=== PATIENT | male | born 1950 | race Caucasian/White ===

== ENCOUNTER 2016-10-28 09:07 | Outpatient (CLI) | payer MEDICARE ==
[~2016-10-28] VITALS: Ht 182.9 cm; Wt 108.6 kg
--- NOTE | ~2016-10-28 | HEMODYNAMI ---
PATIENT:SARAVANAN SAM MEDICAL RECORD: [id number] : 50 LOCATION:[facility] ADMISSION DATE: 10/28/16 Generatedon:10/28/201612:15 Patient name: SARAVANAN SAM Patient #: [id number] : 1950 Date of study: 10/28/2016 Page: Of Hemodynamic Procedure Report Patient Data Patient Demographics Procedure consent was obtained First Name: SARAVANAN Gender: Male Last Name: FLACO : 1950 [facility] Initial: NIA Age: 66 year(s) Patient #: [id number] Race: SSN: [id number] Additional ID: [id number] Contact details [address]: [address] [place] [address] State: [place] City: [place] Zip code: [address] Past Medical History History of disease Date Diagnosis Comments Valvular heart disease Renal failure->Dialysis Allergies: No known allergies Admission Admission Data Admission Date: 10/28/2016 Admission Time: 9:07 Arrival Date: 10/28/2016 Arrival Time: 0:00 Admit Source: Other Insurance Payor: Medicare Height (in.): 72 BSA: 2.3 (m2) Height (cm.): 182.88 BMI: 32.41 (kg/m2) Weight (lbs.): 239 Weight (kg.): 108.41 Lab Results Lab Result Date: 10/28/2016 Lab Result Time: 0:00 Biochemistry Name Units Result Min Max BUN mg/dl 34 --(----)-* 7 18 Creatinine mg/dl 6.7 --(----)-* 0.6 1.3 CBC Name Units Result Min Max Hemoglobin g/dl 14.1 --(*---)-- 13.5 17.5 Procedure Procedure Types Cath Procedure Diagnostic Procedure LHC LHC w/Coronaries w/Grafts PCI Procedure Coronary Stent Initial Miscellaneous Procedures Moderate Sedation up to 45 minutes Procedure Description Procedure Date Procedure Date: 10/28/2016 Procedure Start Time: 11:50 Procedure End Time: 12:11 Procedure Staff Name Function Alpesh Swan MD Performing Physician Sabine Sanches RT Scrub Annita Bates RN Nurse Jesus Perez RT Monitor Procedure Data Cath Procedure Fluoroscopy Diagnostic fluoroscopy Total fluoroscopy Time: 8.5 time: 8.5 min min Diagnostic fluoroscopy Total fluoroscopy dose: 695 dose: 695 mGy mGy Contrast Material Contrast Material Type Amount (ml) Isovue 300 112 Entry Location Entry Primary Successful Side Size Upsize Upsize Entry Closure Succes sful Closure Location (Fr) 1 (Fr) 2 (Fr) Remarks Device Remarks Femoral Right 5 Fr 6 Fr Exoseal artery Short Diagnostic catheters Device Type Used For End Catheter Placement Cordis 5Fr Pigtail LV Angiography Catheter (MP) Cordis 5Fr JL 4.0 Left Coronary Catheter (MP) Angiography Cordis 5Fr 3DRC Catheter SVG Angiography (MP) Diagnostic Infinity 5Fr SVG Angiography AR 2 MOD catheter Procedure Complications No complications Procedure Medications Medication Administration Route Dosage Oxygen NC 2 l/min Lidocaine 2% added to field 20 Heparin Flush Bag added to field 2 bags (1000units/500ml NS) 0.9% NaCl I.V. 100 ml/hr Versed I.V. 1 mg Fentanyl I.V. 50 mcg Versed I.V. 1 mg Fentanyl I.V. 50 mcg Versed I.V. 1 mg Fentanyl I.V. 50 mcg Heparin Bolus I.V. 4000 units Integrilin (Bolus I.V. 9.5 ml 2mg/ml) Versed I.V. 1 mg Fentanyl I.V. 50 mcg Plavix P.O. 600 mg Hemodynamics Rest BSA: 2.3 (m2) HGB: 14.1 (g/dl) O2 Consumption: Estimated: 304.07 (ml/min) O2 Con sumption indexed: Estimated:132.2 (ml/min/m) Heart Rate: 112 (bpm) Snapshots Pre Cath Intra NCS Post Cath Vital Signs Time Heart Resp SPO2 NIBP Rhythm Pain Sedation Rate (ipm) (%) (mmHg) Status Level (bpm) 11:00:05 111 23 100 96/70(80) NSR 0 (11) 10(A) , No pain 11:04:16 111 19 99 88/66(80) NSR 0 (11) 10(A) , No pain 11:08:22 111 20 100 95/68(76) NSR 0 (11) 10(A) , No pain 11:12:32 110 24 100 91/65(77) NSR 0 (11) 10(A) , No pain 11:16:38 110 16 96 92/69(82) NSR 0 (11) 10(A) , No pain 11:20:46 111 18 99 96/68(83) NSR 0 (11) 10(A) , No pain 11:24:56 111 16 95 93/66(83) NSR 0 (11) 10(A) , No pain 11:29:01 111 14 95 93/71(80) NSR 0 (11) 10(A) , No pain 11:33:19 108 15 96 93/50(84) NSR 0 (11) 10(A) , No pain 11:37:32 109 17 97 95/59(62) NSR 0 (11) 10(A) , No pain 11:41:42 108 17 95 89/67(77) NSR 0 (11) 10(A) , No pain 11:45:53 108 16 95 87/56(72) NSR 0 (11) 10(A) , No pain 11:50:01 108 16 94 85/59(80) NSR 0 (11) 9(A) , No pain 11:54:09 108 16 95 90/59(72) NSR 0 (11) 9(A) , No pain 11:58:23 107 15 94 82/53(76) NSR 0 (11) 9(A) , No pain 12:02:29 106 17 95 81/58(71) NSR 0 (11) 9(A) , No pain 12:06:33 71 14 95 75/61(69) NSR 0 (11) 9(A) , No pain 12:10:32 111 16 96 93/71(87) NSR 0 (11) 10(A) , No pain Medications Time Medication Route Dose Verified Delivered Reason Notes Effectiveness by by 10:59:19 Oxygen NC 2 Alpesh Ariza used for l/min Beny Bates sanitation truck driver 10:59:25 Lidocaine 2% added 20ml Alpesh Betts for local to vial Beny Swan MD anesthetic field 10:59:30 Heparin Flush added 2 Alpesh Betts used for Bag to bags Beny Swan MD procedure (1000units/500ml field NS) 10:59:40 0.9% NaCl I.V. 100 Alpesh Buffie Per physician ml/hr Beny Bates RN 11:42:00 Versed I.V. 1 mg Alpesh Wongie for sedation Beny Bates RN 11:42:06 Fentanyl I.V. 50 Alpesh Wongie for sedation mcg Beny Bates RN 11:46:45 Versed I.V. 1 mg Alpesh Buffie for sedation Beny Bates RN 11:46:49 Fentanyl I.V. 50 Alpesh Wongie for sedation mcg Beny Bates RN 11:52:52 Versed I.V. 1 mg Alpesh Wongie for sedation Beny Bates RN 11:52:56 Fentanyl I.V. 50 Alpesh Wongie for sedation mcg Beny Bates RN 12:00:53 Heparin Bolus I.V. 4000 Alpesh Ariza for verifi ed units Beny Bates RN anticoagulation with dr swan 12:02:53 Integrilin I.V. 9.5 Alpesh Wongie for wasted (Bolus 2mg/ml) ml Beny Bates RN antiplatelet 0.5 ml therapy of vial 12:06:51 Versed I.V. 1 mg Alpesh Wongie for sedation Beny Bates RN 12:06:56 Fentanyl I.V. 50 Alpesh Wongie for sedation mcg Beny Bates RN 12:13:42 Plavix P.O. 600 Alpesh Ariza for mg Beny Bates RN antiplatelet therapy Procedure Log Time Note 10:43:33 Admit Source: Other 10:44:00 Diagnostic Cath status Elective 10:44:02 Annita Bates RN sent for patient. Start room use. 10:44:04 Time tracking: Regular hours 10:44:09 Plan of Care:Hemodynamics will remain stable., Cardiac rhythm will remain stable., Comfort level will be maintained., Respiratory function will remain adequate., Patient/ family verbilizes understanding of procedure., Procedure tolerated without complication., Recovers from procedure without complications.. 10:47:16 Patient Height : 182.88 cm 10:47:25 Patient Weight : 108.41 kg 10:47:26 Insurance Payor : Medicare 10:47:29 Arrival Date: 10/28/2016 12:00:00 AM 10:48:12 Use device set Femoral Dx 10:48:38 H&P Date Dictated: 10/26/2016 Within 30 days and on chart., H&P Addendum completed by physician on day of procedure. (MUST COMPLETE FOR ALL OUTPATIENTS). 10:58:51 Vital chart was started 10:59:19 Oxygen 2 l/min NC was administered by Annita Bates RN; used for procedure; 10:59:25 Lidocaine 2% 20ml vial added to field was administered by Alpesh Swan MD; for local anesthetic; 10:59:30 Heparin Flush Bag (1000units/500ml NS) 2 bags added to field was administered by Alpesh Swan MD; used for procedure; 10:59:40 0.9% NaCl 100 ml/hr I.V. was administered by Annita Bates RN; Per physician; 11:01:40 Patient received from Pre/Post Procedure Room to [facility]3] 3 Alert and oriented. Tansferred to table in Supine position. 11:01:42 Warm blankets applied, and karthik hugger turned on for patient comfort. 11:01:43 Correct patient and procedure confirmed by team. 11:01:44 Signed procedure consent form obtained from patient. 11:01:46 ECG and BP/O2 sat monitors applied to patient. 11:01:47 Baseline sample Acquired. 11:01:51 Rhythm: sinus rhythm 11:01:52 Full Disclosure recording started 11:01:53 Baseline sample Acquired. 11:01:58 Pre-procedure instructions explained to patient. 11:02:02 Family in waiting room. 11:02:04 Patient NPO since Midnight. 11:02:11 Patient allergic to No known allergies 11:02:14 Is the patient allergic to Iodine/contrast media? No. 11:02:16 Is patient on blood thinner?No 11:02:17 Patient diabetic? No. 11:02:22 Snore? No 11:02:24 Sleep apnea? No 11:02:31 Dentures? No ? 11:02:36 Patient pain scale 0/10 ?. 11:02:45 IV patent on arrival in right hand with 0.9% NaCl at [facility]. 11:02:57 Lab results completed and on chart. 11:03:01 Right groin area was prepped with chlora-prep and draped in sterile fashion 11:03:01 Alarms reviewed by R. N. 11:03:02 Sharps counted by scrub and verified by R.N. 11:03:04 Physician paged 11:08:12 Lab Result : Creatinine 6.7 mg/dl 11:08:12 Lab Result : BUN 34 mg/dl 11:08:12 Lab Result : Hemoglobin 14.1 g/dl 11:18:31 Zero performed for pressure channel P1 11:18:59 ----Pre-sedation anethsthesia assessment.---- 11:18:59 Previous problem with sedation/anesthesia? No ? 11:19:01 Deviated septum? No 11:19:03 Opens mouth fully? Yes 11:19:04 Sticks out tongue? Yes 11:19:05 Airway obstruction? No ? 11:19:11 Pre procedure: right dorsailis pedis pulse 1+ Palpable, but thready & weak; easily obliterated 11:39:36 --------ALL STOP TIME OUT------ 11:39:37 Final Timeout: patient, procedure, and site verified with staff and physician. All members of the team are in agreement. 11:39:38 Right groin site verified by team. 11:39:43 Physical assessment completed. ASA score P 2 - A patient with mild systemic disease as per Alpesh Swan MD. 11:39:46 Sedation plan: IV Moderate Sedation Versed, Fentanyl 11:42:00 Versed 1 mg I.V. was administered by Annita Bates RN; for sedation; 11:42:06 Fentanyl 50 mcg I.V. was administered by Annita Bates RN; for sedation; 11:44:24 Use device set Femoral Dx 11:44:26 Acist Syringe opened to sterile field. 11:44:26 Bag Decanter opened to sterile field. 11:44:26 Medline Cath Pack opened to sterile field. 11:44:27 Terumo 5Fr [place] Sheath opened to sterile field. 11:44:27 St Bebo 260cm J .035 wire opened to sterile field. 11:44:29 Acist Hand Control opened to sterile field. 11:44:29 Acist Manifold opened to sterile field. 11:44:29 Diagnostic Infinity 5Fr Multipack catheter opened to sterile field. 11:44:30 Tegaderm 4 x 4 opened to sterile field. 11:46:45 Versed 1 mg I.V. was administered by Annita Bates RN; for sedation; 11:46:49 Fentanyl 50 mcg I.V. was administered by Annita Bates RN; for sedation; 11:49:56 Procedure started. 11:50:05 Local anesthetic to right femoral artery with Lidocaine 2% by Alpesh Swan MD.INITIAL ACCESS ONLY 11:50:12 A 5 Fr sheath was inserted into the Right Femoral artery 11:51:09 A Cordis 5Fr Pigtail Catheter (MP) was advanced over the wire and used for LV Angiography. 11:52:19 Catheter removed. 11:52:30 UNABLE TO CROSS LV 11:52:37 A Cordis 5Fr JL 4.0 Catheter (MP) was advanced over the wire and used for Left Coronary Angiography. 11:52:40 LCA angiography performed. 11:52:52 Versed 1 mg I.V. was administered by Annita Bates RN; for sedation; 11::56 Fentanyl 50 mcg I.V. was administered by Annita Bates RN; for sedation; 11:53:42 Catheter removed. 11:53:47 A Cordis 5Fr 3DRC Catheter (MP) was advanced over the wire and used for SVG Angiography. 11:55:39 Terumo ANGLE 260cm glide wire opened to sterile field. 11:57:51 RAMIREZ to LAD angiography performed. 11:58:00 RCA angiography performed. 11:58:07 Catheter removed. 11:58:15 A Diagnostic Infinity 5Fr AR 2 MOD catheter was advanced over the wire and used for SVG Angiography. 11:59:31 SVG to RCA occluded. 11:59:34 Catheter removed. 12:00:53 Heparin Bolus 4000 units I.V. was administered by Annita Bates RN; for anticoagulation; verified with dr swan 12:01:03 Schultz Whisper J 300cm 0.014 guide wire opened to sterile field. 12:01:04 Terumo 6Fr [place] Sheath opened to sterile field. 12:01:04 Appolicious BasixCompak Inflation Kit opened to sterile field. 12:01:04 EnvironmentIQtronic Launcher 6Fr HS II guide catheter opened to sterile field. 12:01:05 Terumo TORQUE DEVICE PLASTIC .038 opened to sterile field. 12:01:16 Sheath upsized to a 6 Fr Short. 12:01:39 ACC PCI Site: mRCA has 90% stenosis. 12:01:41 ACC Pre-intervention RICHIE Flow is 3. 12:02:07 6 Fr HS11 guide catheter was inserted over the wire 12:02:12 Guide Catheter removed. unable to cannulate vessel. 12:02:18 6 Fr AR 2 guide catheter was inserted over the wire 12:02:26 Medtronic Launcher 6Fr AR 2.0 guide catheter opened to sterile field. 12:02:49 WHISPER wire advanced. 12:02:53 Integrilin (Bolus 2mg/ml) 9.5 ml I.V. was administered by Annita Bates RN; for antiplatelet therapy; wasted 0.5 ml of vial 12:04:36 Inflation number: 1 A Peacham Sci [place] 2.5 X 12 balloon was prepped and advanced across the Mid RCA, then inflated to 11 BURTON for 0:10 (min:sec). 12:04:49 Inflation number: 2 The Peacham Sci [place] 2.5 X 12 balloon was reinflated across the Mid RCA, to 13 BURTON for 0:10 (min:sec). 12:05:01 Balloon removed over the wire. 12:06:51 Versed 1 mg I.V. was administered by Annita Bates RN; for sedation; 12:06:56 Fentanyl 50 mcg I.V. was administered by Annita Bates RN; for sedation; 12:07:08 Inflation Number: 3 A Medtronic Integrity 3.0 X 15 stent was prepped and advanced across the Mid RCA. The stent was deployed at 13 BURTON for 0:11 (min:sec). 12:07:45 Stent catheter was removed intact over wire. 12:07:51 Wire removed. 12:07:52 Guide catheter removed. 12:07:57 Cordis 6Fr Exoseal opened to sterile field. 12:08:08 Contrast amount:Isovue 300 112ml. 12:08:15 Sheath removed intact; hemostasis achieved with Exoseal to the Right Femoral artery. 12:09:33 Procedure ended.(Physican Out) 12:09:45 Fluoroscopy time 08.50 minutes. 12::52 Flurop Dose total: 695 12::52 Fluoroscopy dose: 695 mGy 12:09:53 Sharps counted by scrub and verified by R.N. 12:09:55 Insertion/operative site no bleeding no hematoma. 12:09:57 Post-op/insertion site Right Femoral artery dressed using a 4 x 4 and Tegaderm. 12:09:59 Post right femoral artery:stable 12:10:01 Post Procedure Pulses reassessed and unchanged 12:10:05 Post procedure rhythm: sinus tachycardia 12:10:06 Post procedure instruction explained to patient.Patient verbalizes understanding. 12:10:26 Procedure type changed to Cath procedure, Diagnostic procedure, LHC, LHC w/Coronaries w/Grafts, PCI procedure, Coronary Stent Initial, Miscellaneous Procedures, Moderate Sedation up to 45 minutes 12:10:43 Procedure and supply charges have been captured, reviewed, submitted and are correct. 12:10:47 Procedure Complication : No complications 12:10:53 Vital chart was stopped 12:10:54 See physician's report for complete and final results. 12:10:58 Report given to Pre/Post Procedure Room. 12:11:03 Patient transfered to Pre/Post Procedure Room with Stretcher. 12:11:05 Procedure ended. 12:11:05 Full Disclosure recording stopped 12:11:14 ACC-PCI Only Patient was given prescriptions, or instructed by Alpesh Swan MD to start/continue the following medications upon discharge: Plavix 12:11:15 End room use (Document Last) 12:13:42 Plavix 600 mg P.O. was administered by Annita Bates RN; for antiplatelet therapy; Intervention Summary Intervention Notes Time ActionType Lesion and Equipment Action# Pressure Duration Attributes Used 12:04:36 Inflate Mid RCA Peacham 1 11 00:10 balloon Sci [place] 2.5 X 12 balloon 12:04:49 Reinflate Mid RCA Peacham 2 13 00:10 balloon Sci [place] 2.5 X 12 balloon 12:07:08 Place stent Mid RCA Medtronic 3 13 00:11 Integrity 3.0 X 15 stent Device Usage Item Name Manufacture Quantity Catalog Number Hospital Part Current Mini mal Lot# / Charge Number Stock Stock Serial# Code Acist Acist 1 95629 246500 853325 405944 20 [employer]ave [employer] Medical MerryMarry Inc Bag Microtek 1 2002S 626022 33000 528680 5 Deans[employer], Inc.. Medline Cardinal 1 [id number] 912771 94651 302008 5 Cath Pack Health Terumo 5Fr Terumo 1 [id number] 233949 159200 805578 [address] Beb[address] St Bebo 1 954020 858149 841037 979539 30 260cm J .035 wire Acist Hand Acist 1 69300 080308 198550 714397 5 [employer] Systems Inc Acist Acist 1 66243 560500 009031 232803 5 X-BOLT Orthapaedics Systems Inc Diagnostic Cardinal 1 [id number] 189500 99720 273625 30 Infinity Health 5Fr Multipack catheter Tegaderm 4 3M 1 1626W 207798 922914 697500 5 x 4 Cordis 5Fr Cardinal 1 572509 5 Pigtail Health Catheter (MP) Cordis 5Fr Cardinal 1 755019 5 JL 4.0 Health Catheter (MP) Cordis 5Fr Cardinal 1 618770 5 3DRC Health Catheter (MP) Terumo Terumo 1 [id number] 544671 576091 937621 5 ANGLE 260cm glide wire Diagnostic Cardinal 1 [id number] 082006 175034 690647 20 Infinity Health 5Fr AR 2 MOD catheter Schultz Schultz 1 [id number] 092345 823869 009301 5 Whisper J Vascular 300cm 0.014 guide wire Terumo 6Fr Terumo 1 AVJ970 873666 008502 402036 40 [place] Sheath Merit Merit 1 OF6123 030887 268042 659470 15 BasixCompak Medical Inflation Kit Medtronic Medtronic 1 [id number] 481392 48276 044714 1 Launcher 6Fr HS II guide catheter Terumo Peacham 1 TD01 660805 604004 235361 5 TORQUE Scientific DEVICE PLASTIC .038 Medtronic Medtronic 1 [id number] 720695 95546 011012 1 Launcher 6Fr AR 2.0 guide catheter Peacham Sci Peacham 1 [id number] 585180 918227 659125 1 [id number] [place] Scientific 2.5 X 12 balloon Medtronic Medtronic 1 [id number] 150623 141228 834913 3 [id number] Integrity 3.0 X 15 stent Cordis 6Fr Cardinal 1 EX600 215115 024251 031408 10 Bar Pass Signature Audit [place] Stage Time Signature Unsigned Intra-Procedure 10/28/2016 Jesus Perez 12:15:46 PM RT(R) Signatures Monitor : Jesus Perez RT Signature : Date : Time : [facility] [address] [place] [address]
[~2016-10-28 09:07] MED LIST: BAYER CHEWABLE81 MG PO; BENADRYL25 MG PO; COLACE100 MG PO; FERROUS SULF; FERROUS SULFAT325 MG PO; FLOMAX0.4 MG PO; HYDROCODON-ACE1 EAC7 PO; MERREM 1 GM/NS 11 G1 IV; MULTI-DAY VITAM1 TAB PO; PEPCID20 MG PO; RENVELA0.8 GM; ROCALTROL0.5 MCG PO; SENSIPAR30 MG PO
[2016-10-28 10:13] VITALS: BP 79/48; Ht 182.9 cm; Wt 108.6 kg
[2016-10-28 10:18] LABS: BASOPHILS 0.1 % (0.0-2.0); EOSINOPHILS 4.7 % (0-7); HEMATOCRIT 47.3 % (42.0-54.0); HEMOGLOBIN 14.1 g/dL (13.5-17.5); IMMATURE GRANULOCYTES 1.3 % (0-5); LYMPHOCYTES 16.1 % (15-50); MCH 27.6 pg (26.0-34.0); MCHC 29.8 g/dL (31.0-37.0); MCV 92.7 fL (80.0-100.0); MEAN PLATELET VOLUME 10.7 fL (7.4-10.4); MONOCYTES 7.9 % (2-11); NEUTROPHILS 69.9 % (40-80); PLATELET COUNT 155 10x3/uL (130-400); RDW 22.7 % (11.5-14.5); WBC 7.7 10x3/uL (4.8-10.8)
[2016-10-28 10:34] LABS: ANION GAP 17.4 mmol/L (8-16); CALCIUM 9.3 mg/dL (8.5-10.1); CREATININE - SERUM 6.7 mg/dL (0.6-1.3); POTASSIUM - SERUM 4.4 mmol/L (3.5-5.1)
[2016-10-28] MEDS ORDERED: PLAVIX75 MG PO (12:29)
--- NOTE | 2016-10-28 12:30 | NUR ---
RECIEVED BACK TO ROOM WITH 6 FR EXOSEAL R/GROIN CDI NO BLEEDING NO HEMATOMA NOTED. HR 108 BP 90-59 1240 HR NOW AT [address] GARCIA NOTIFIED WITH NEW ORDERS RECIEVED. 6 FR EXOSEAL R/GROIN REMAINS CDI NO BLEEDING NO HEMATOMA NOTED.
--- NOTE | 2016-10-28 13:19 | NUR ---
1310 CORODONE BOLUS UP TO INFUSE ORDERED HR 141 UCAF PO CORODONE GIVEN WITH SIPS OF WATER. 6 FR EXOSEAL R/GROIN CDI NO BLEEDING NO HEMATOMA NOTED
[2016-10-28] MEDS ORDERED: CORDARONE200 MG PO (13:27)
--- NOTE | 2016-10-28 13:30 | NUR ---
RIGHT GROIN CDI, NO BLEEDING OR HEMATOMA NOTED. DIRECTOR PARK STILL SHOWING UCAF AT 130. NO C/O CHEST PAIN OR NAUSEA. WILL CONTINUE TO MONITOR.
--- NOTE | 2016-10-28 14:00 | NUR ---
UCAF ON MONITOR @ 107. RESTING QUIETLY, NO RESP DISTRESS NOTED. RIGHT GROIN CDI.
--- NOTE | 2016-10-28 14:30 | NUR ---
NO C/O CHEST PAIN OR NAUSEA AT THIS TIME. VSS. RIGHT GROIN CDI.
--- NOTE | 2016-10-28 15:00 | NUR ---
SANDWICH TRAY GIVEN. NO C/O NAUSEA. UCAF ON MONITOR AT 128. VSS.
--- NOTE | 2016-10-28 15:45 | NUR ---
HOB ELEVATED 30 DEGREES. NO BLEEDING OR HEMATOMA NOTED TO RIGHT GROIN.
--- NOTE | 2016-10-28 16:04 | NUR ---
RIGHT HAND PIV D/C'D WITH CATHTER INTACT, BAND AID TO SITE. UP TO BEDSIDE TO GET DRESSED.
--- NOTE | 2016-10-28 16:10 | NUR ---
DISCHARGE INSTRUCTIONS GIVEN, PT AND VERBALIZED UNDERSTANDING.
--- NOTE | 2016-10-28 16:15 | NUR ---
TAKEN OUT VIA WHEELCHAIR BY CATH CHEESE COOKER. LEFT FACILITY WITH AND ALL PERSONAL BELONGINGS.
--- NOTE | 2016-11-11 10:19 | OP ---
PATIENT NAME: SARAVANAN SAM MEDICAL RECORD: [id number] :50 LOCATION:D.CAT ADMISSION DATE: SURGEON: FORREST GARCIA MD DATE OF OPERATION: 10/28/2016 PROCEDURES: 1. PTCA stent RCA. 2. Left heart catheterization. 3. Selective coronary angiography. 4. Vein graft angiography. 5. RAMIREZ angiography. INDICATION: Angina and coronary artery disease. PROCEDURE: After informed consent was obtained and after detailed explanation of risks, benefits as well as alternative therapies, the patient elected to proceed with angiogram and angioplasty. The right femoral area was prepped and draped in normal sterile fashion. Right femoral artery was cannulated via modified Seldinger technique with placement of 6-Mohawk sheath. All catheters exchanged through this sheath. FINDINGS: The left ventriculogram was not performed due to inability to cross the prosthetic valve. SELECTIVE CORONARY ANGIOGRAPHY: 1. Left main showed no significant angiographic disease. 2. Left anterior descending has a 70+ percent stenosis in the mid vessel. 3. RAMIREZ to the distal LAD is widely patent. 4. Left circumflex shows moderate irregularities, but no flow-limiting stenosis. 5. Right coronary has a 90% stenosis in the mid vessel. 6. Vein graft to the right coronary is closed. PTCA STENT OF THE RIGHT CORONARY: The stent used was a 3.0 x 15 mm Integrity. Result was 0% residual stenosis. OVERALL IMPRESSION: Successful percutaneous transluminal coronary angioplasty stent of the right coronary artery going from 90% initial stenosis to 0% residual. TRANSINT:[id number] Voice Confirmation ID: [id number] DOCUMENT ID: [id number] FORREST GARCIA MD at 1019 CC: [id number] DICTATION DATE: 10/28/16 1212 SHIP FASTENER: 10/28/16 1319 DEP CLI 10/28/16 [place] [address]
== END 2016-10-28 16:15 | disposition home or self-care (01) ==
LOC: D.CATH 09:07
PROVIDERS: Internal Medicine Interventional Cardiology
DX: I25.119 Atherosclerotic heart disease of native coronary artery with unspecified angina pectoris (principal); Z95.1 Presence of aortocoronary bypass graft

== ENCOUNTER 2016-11-25 15:22 | Emergency (ER) | payer MEDICARE ==
[~2016-11-25 15:22] MED LIST changes: +CORDARONE200 MG PO; +PLAVIX75 MG PO
[2016-11-25 16:53] LABS: BASOPHILS 0.1 % (0-2); HEMATOCRIT 52.7 % (42.0-54.0); HEMOGLOBIN 16.2 g/dL (13.5-17.5); IMMATURE GRANULOCYTES 1.4 % (0-5); LYMPHOCYTES 12.5 % (15-50); MCH 29.8 pg (26.0-34.0); MCHC 30.7 g/dL (31.0-37.0); MCV 96.9 fL (80.0-100.0); MEAN PLATELET VOLUME 11.9 fL (7.4-10.4); MONOCYTES 10.6 % (2-11); NEUTROPHILS 73.4 % (40-80); RBC 5.44 10x6/uL (4.20-6.10); RDW 23.8 % (11.5-14.5); WBC 11.6 10x3/uL (4.8-10.8)
[2016-11-25 17:04] LABS: PLATELET COUNT 187 10x3/uL (130-400)
[2016-11-25 17:06] LABS: ALBUMIN 3.6 g/dL (3.4-5.0); ANION GAP 16.6 mmol/L (8-16); BILIRUBIN - TOTAL 0.37 mg/dL (0.2-1.3); CALCIUM 11.2 mg/dL (8.5-10.1); CARBON DIOXIDE 29.8 mmol/L (21.0-32.0); CREATININE - SERUM 8.1 mg/dL (0.6-1.3); POTASSIUM - SERUM 5.4 mmol/L (3.5-5.1); PROTEIN - SERUM 8.9 g/dL (6.4-8.2)
== END 2016-11-25 22:21 | disposition home or self-care (01) ==
LOC: D.ER 15:22
PROVIDERS: Emergency Medicine
DX: M54.6 Pain in thoracic spine (principal); M62.830 Muscle spasm of back; M25.461 Effusion, right knee; Z99.2 Dependence on renal dialysis; I25.10 Atherosclerotic heart disease of native coronary artery without angina pectoris; I12.9 Hypertensive chronic kidney disease with stage 1 through stage 4 chronic kidney disease, or unspecified chronic kidney disease; N18.9 Chronic kidney disease, unspecified

== ENCOUNTER 2016-12-16 17:25 | Inpatient (IN) | payer MEDICARE ==
[~2016-12-16] VITALS: Ht 182.9 cm; Wt 100.0 kg
[2016-12-16] MEDS ORDERED: AUGMENTIN 500-11 TA1 PO (18:08)
[2016-12-16] MEDS ORDERED: MIDODRINE HCL5 MG PO (18:10)
[2016-12-16 18:18] VITALS: BP 85/49; BMI 30.6
--- NOTE | 2016-12-16 18:40 | NUR ---
PT ARRIVED DIRECT ADMIT. FAMILY WITH PT. PT DOES NOT URINATE. DR. ATWOOD HERE AND VISITED WITH PATIENT.
[2016-12-16 20:03] LABS: THYROID STIMULATING HORMONE 6.91 uIU/mL (0.36-3.74)
[2016-12-16 20:21] VITALS: BP 75/42
[2016-12-16 20:26] LABS: T4 THYROXINE 7.2 ug/dL (4.7-13.3)
[2016-12-17] VITALS (15 sets, daily range): BP systolic 66–83; BP diastolic 39–56; Ht 182.9 cm; Wt 100.0 kg
--- NOTE | 2016-12-17 07:30 | NUR ---
ASSESSMENT COMPLETED. PT IS A DNR. LEFT AVF. NOTED. DENIES ANY NEEDS. FAMILY AT BEDSIDE. TELEMERTY SHOWS SR. WILL MONITOR
[2016-12-17 10:28] LABS: BASOPHILS 0.1 % (0-2); EOSINOPHILS 1.3 % (0-7); HEMATOCRIT 45.9 % (42.0-54.0); HEMOGLOBIN 13.9 g/dL (13.5-17.5); IMMATURE GRANULOCYTES 1.3 % (0-5); LYMPHOCYTES 10.4 % (15-50); MCH 30.2 pg (26.0-34.0); MCHC 30.3 g/dL (31.0-37.0); MCV 99.6 fL (80.0-100.0); MONOCYTES 6.5 % (2-11); NEUTROPHILS 80.4 % (40-80); PLATELET COUNT 196 10x3/uL (130-400); RBC 4.61 10x6/uL (4.20-6.10); RDW 21.5 % (11.5-14.5); WBC 9.4 10x3/uL (4.8-10.8)
[2016-12-17 10:39] LABS: ANION GAP 20.9 mmol/L (8-16); CALCIUM 9.6 mg/dL (8.5-10.1); CARBON DIOXIDE 26.9 mmol/L (21.0-32.0); CREATININE - SERUM 11.8 mg/dL (0.6-1.3); POTASSIUM - SERUM 4.8 mmol/L (3.5-5.1)
--- NOTE | 2016-12-17 11:55 | NUR ---
LUNCH SERVED NAD NOTED AT BEDSIDE
--- NOTE | 2016-12-17 13:49 | NUR ---
TRANSFERED TP ICU PER DR CUTLER. REPORT CALLED
--- NOTE | 2016-12-17 17:46 | NUR ---
RECEIVED PT FROM FLOOR AT APPROX 1400 FROM FLOOR, PER RENAL MD DT LOW BP SYS IN 70'S NON SYMPTOMATIC, NEEDING DIALYSIS, TO ICU FOR PRECAUTIONS DURING DIALYSIS, HOOKED UP TO MONITORS ALERT ORIENTED ABLE TO ANSWER ALL QUESTIONS APPROP. AT BEDSIDE. BP 77/48 MAP OF 58, CALLED MD NO NEW ORDERS STATED TO JUST WATCH HIM. DIALYSIS NURSE IN ROOM AND DISLYSIS STARTED, 20G PIV TO RIGHT FOREARM, 1 STICK TOLERATED WELL, NO IVF RUNNING SALINE LOCKED. PT TOLERATED DIALYSIS IN [place] WITH BP 60'S-70'S SYS, WILL CONTINUE TO MONITOR DINNER MEAL TRAY GIVEN, MEDS TAKEN WILL CONT TO MONITOR.
--- NOTE | 2016-12-17 17:52 | NUR ---
Mr. Abrams had bedside hemodialysis today from 1405 until 1705 via his left lower arm av fistula. Pt. was very hypotensive during the treatment and post treatment. Removed a net of 2500 mls. Average blood flow was 400 mls/minute. Post viatl signs were: B/P: 74/51, HR: 68, Temp: 97.4, Resps: 22. Alertpost treatment with no c/o discomfort.
--- NOTE | 2016-12-17 18:55 | NUR ---
1855: Pt verbalized he would like to have his code status changed to FULL CODE from DNR. DNR sheet removed from chart and new order placed in [facility] to change code status to full.
--- NOTE | 2016-12-17 19:00 | NUR ---
1900: HD nurse in room and completing HD at this time. Pt SBP 60-70 mmHG.
--- NOTE | 2016-12-17 21:00 | NUR ---
2100: Pt up in chair. Steady gait. Denies dizziness. Pt SBP 70-80 at this time. Discussed medications with patient at length and pt verbalized understanding. Discussed ICU protocols and plan of care with pt at length. Pt states he has been having some small white discharge from his penis. Pt states he doesn't make urine, but has recently had the urge to urinate. Pt also verified that he is a FULL CODE at this time. Acknowledged code status with pt. Pt states "when they first asked I felt so bad and didn't want to feel like that forever." "I feel a little better here."
[2016-12-18] VITALS (30 sets, daily range): BP systolic 52–87; BP diastolic 29–63
--- NOTE | 2016-12-18 | NUR ---
0000: Pt SBP showing 50's at this time. Pt awake, alert, and oriented. Pt denies nausea or dizziness at this time. Pt denies pain. Pt's states "that is what he has been doing a lot of times after diaylsis." Pt BP cuff changed and repositioned. STAT BP measurement showing 70's at this time.
--- NOTE | 2016-12-18 02:00 | NUR ---
0200: Pt resting on right side with eyes closed. Pt SBP showing 70's at this time. remains at bedside. Pt SR 90's on CM.
[2016-12-18 04:08] LABS: BASOPHILS 0.1 % (0-2); EOSINOPHILS 1.7 % (0-7); HEMATOCRIT 44.9 % (42.0-54.0); HEMOGLOBIN 13.3 g/dL (13.5-17.5); IMMATURE GRANULOCYTES 1.2 % (0-5); LYMPHOCYTES 9.2 % (15-50); MCH 29.4 pg (26.0-34.0); MCHC 29.6 g/dL (31.0-37.0); MCV 99.3 fL (80.0-100.0); MEAN PLATELET VOLUME 11.4 fL (7.4-10.4); MONOCYTES 8.6 % (2-11); NEUTROPHILS 79.2 % (40-80); PLATELET COUNT 214 10x3/uL (130-400); RBC 4.52 10x6/uL (4.20-6.10); RDW 21.7 % (11.5-14.5); WBC 9.2 10x3/uL (4.8-10.8)
[2016-12-18 04:22] LABS: ANION GAP 19.7 mmol/L (8-16); CARBON DIOXIDE 25.2 mmol/L (21.0-32.0)
[2016-12-18 04:24] LABS: CREATININE - SERUM 8.7 mg/dL (0.6-1.3); POTASSIUM - SERUM 3.9 mmol/L (3.5-5.1)
--- NOTE | 2016-12-18 19:00 | NUR ---
REPORT RECEIVED AND ASSESSMENT COMPLETED. SEE FLOWSHEET FOR FULL DETAILS. PT B/P IN 60'S SYSTOLIC. DR CUMMINGS AWARE. NO MEDS ORDERED FOR IT AT THIS TIME. WILL MONITOR CLOSELY THROUGHOUT SHIFT AND CALL SHOULD PT BECOME SYMPTOMATIC.
--- NOTE | 2016-12-18 21:00 | NUR ---
2100 MEDS GIVEN. FAMILY AT BEDSIDE. DISCUSSED ECHO SCHEDULED FOR TOMORROW. WILL CONTINUE TO MONITOR FOR CHANGES
--- NOTE | 2016-12-18 23:34 | NUR ---
REASSESSMENT COMPLETED. SEE FLOWSHEET FOR FULL DETAILS. PT PROVIDED WITH BLANKET FROM [place]. STATES THAT HIS SALOME AREA PAIN "FEELS BETTER" AND THAT HE IS GOING TO ATTEMPT TO REST. B/P STILL LOW BUT ASYMPTOMATIC. NO OTHER CHANGES AT THIS TIME. VSS WILL CONTINUE TO MONITOR
[2016-12-19] VITALS (11 sets, daily range): BP systolic 64–110; BP diastolic 39–66
--- NOTE | 2016-12-19 01:00 | NUR ---
NO CHANGES IN STATUS AT THIS TIME. WILL CONTINUE TO MONITOR
--- NOTE | 2016-12-19 03:27 | NUR ---
REASSESSMENT COMPLETED. SEE FLOWSHEET FOR FULL DETAILS. PT UP IN CHAIR WATCHING TV AT THIS TIME. NO OTHER CHANGES
[2016-12-19 04:50] LABS: ANION GAP 21.3 mmol/L (8-16); BASOPHILS 0.1 % (0-2); CALCIUM 9.5 mg/dL (8.5-10.1); CARBON DIOXIDE 23.1 mmol/L (21.0-32.0); CREATININE - SERUM 11.1 mg/dL (0.6-1.3); EOSINOPHILS 2.4 % (0-7); HEMATOCRIT 45.8 % (42.0-54.0); HEMOGLOBIN 13.9 g/dL (13.5-17.5); MCH 29.8 pg (26.0-34.0); MCHC 30.3 g/dL (31.0-37.0); MCV 98.3 fL (80.0-100.0); MEAN PLATELET VOLUME 10.7 fL (7.4-10.4); MONOCYTES 8.4 % (2-11); NEUTROPHILS 73.1 % (40-80); PLATELET COUNT 211 10x3/uL (130-400); POTASSIUM - SERUM 4.4 mmol/L (3.5-5.1); RBC 4.66 10x6/uL (4.20-6.10); RDW 21.6 % (11.5-14.5); WBC 8.6 10x3/uL (4.8-10.8)
--- NOTE | 2016-12-19 05:13 | NUR ---
PT BACK IN BED WATCHING TV. NO OTHER CHANGES IN STATUS AT THIS TIME. VSS. WILL CONTINUE TO MONITOR
--- NOTE | 2016-12-19 07:00 | NUR ---
PT SITTING UP IN CHAIR AT THIS TIME. SHIFT ASSESSMENT COMPLETED PER FLOWSHEET. HEART MURMUR NOTED, PT STATES THAT HE HAS HAD THIS MURMUR. BP LOW WITH SYSTOLIC IN 60S. DR ATWOOD NOTIFIED AND HE STATES THAT PT IS ASYMPTOMATIC AT THIS TIME AND WE WILL NOT CORRECT PRESSURE DUE TO STATE OF PTS KIDNEYS. WILL UNDERGO HEMODIALYSIS TODAY IN ICU THEN TRANSFER TO FLOOR IF STABLE. WILL CONTINUE TO MONITOR.
--- NOTE | 2016-12-19 09:00 | NUR ---
PT FAMILY GIVEN UPDATE. VERBALIZED UNDERSTANDING OF POC. PT DIALYZING AT THIS TIME. BP REMAINS LOW AND DR ATWOOD IS AWARE. PT IS ASYMPTOMATIC. WILL CONTINUE TO MONITOR CLOSELY DURING TREATMENT
--- NOTE | 2016-12-19 10:38 | NUR ---
Nutrition follow-up: Diet: Renal PO intake 100% of last 3 meals Labs reviewed RDN following.
--- NOTE | 2016-12-19 11:00 | NUR ---
PT REMAINS ON DIALYSIS. MANUAL BP CHECKED TO VERIFY BP READING ON MONITOR. PT TOLERATING TREATMENT WELL AND IS ASYMPTOMATIC OF HYPOTENSION. WILL CONTINUE TO MONTIOR
--- NOTE | 2016-12-19 13:00 | NUR ---
DIALYSIS COMPLETE AND PT STABLE. BP INCREASED WITH DIALYSIS AND IS WNL. PT SAT UP AND ATE LUNCH INDEPENDENTLY. WILL CONTINUE TO MONITOR
--- NOTE | 2016-12-19 13:21 | NUR ---
Mr. Abrams had bedside hemodialysis today via his left lower ar av fistula from 0955 until 1255. Average blood flow was 400 mls/minute. Net fluid removed was 2000 mls. Pt. Was very hypotensive today requiring albumin infusion times two and placement of pt in trendelenburg postion. After the albumin was infused the b/p stabilized and I was able continue to pull fluid. Post vital signs were: B/P: 112/59, HR: 93, Temp: 97.4, Resps: 30.
--- NOTE | 2016-12-19 15:00 | NUR ---
AT BEDSIDE. WAITING FOR ROOM TO TRANSFER PT TO FLOOR. PT DENIES PAIN OR DISCOMFORT. WILL CONTINUE TO MONTIOR CLOSELY
--- NOTE | 2016-12-19 17:00 | NUR ---
PT SITTING UP EATING DINNER INDEPENDENTLY. WILL CONTINUE TO MONITOR.
--- NOTE | 2016-12-19 19:00 | NUR ---
XFER ORDERS IN PLACE. PT AWAITING PLACEMENT
--- NOTE | 2016-12-19 19:00 | NUR ---
ORDER RECEIVED FOR XFER. PT STABLE RESTING AND AWAITING ROOM
--- NOTE | 2016-12-19 19:30 | NUR ---
ORT CALLED TO MED 2 PT TO TRANSFER TO 2102.
--- NOTE | 2016-12-19 21:31 | NUR ---
RECIEVED TO ROOM 2102 FROM ICU VIA WC. PT A&O. IV TO RIGHT FOREARM SL, SITE CLEAN AND DRY. DRSG NOTED TO LEFT FOREARM AVF, PT STATED THAT HE HAD DIALYSIS EARLIER TODAY. PT DENIES PAIN OR NEEDS, UP ADLIB TO BR, GAIT STEADY.
--- NOTE | 2016-12-19 21:36 | NUR ---
PT TRANSFERED TO 2102 BY CHAIR.
--- NOTE | 2016-12-19 21:53 | NUR ---
HS MEDS GIVEN WITH FRESH ICE WATER. PT DENIES PAIN OR NEEDS, BED LOW, CL IN REACH. AT BED SIDE.
--- NOTE | 2016-12-20 00:10 | NUR ---
RESTING ON RIGHT SIDE, RESPERATIONS EVEN, NO S/S DISTRESS NOTED.
[2016-12-20 01:46] VITALS: BP 120/61; BP 69/42
--- NOTE | 2016-12-20 04:15 | NUR ---
RESTING WITH EYES CLOSED, RESPERATIONS EVEN, NO S/S DISTRESS NOTED.
[2016-12-20 06:05] LABS: BASOPHILS 0.1 % (0-2); EOSINOPHILS 2.3 % (0-7); HEMOGLOBIN 14.5 g/dL (13.5-17.5); IMMATURE GRANULOCYTES 1.4 % (0-5); LYMPHOCYTES 16.5 % (15-50); MCH 30.1 pg (26.0-34.0); MCHC 30.2 g/dL (31.0-37.0); MCV 99.6 fL (80.0-100.0); MEAN PLATELET VOLUME 11.1 fL (7.4-10.4); MONOCYTES 9.6 % (2-11); NEUTROPHILS 70.1 % (40-80); PLATELET COUNT 227 10x3/uL (130-400); RBC 4.82 10x6/uL (4.20-6.10); RDW 21.8 % (11.5-14.5); WBC 7.7 10x3/uL (4.8-10.8)
[2016-12-20 06:23] LABS: ANION GAP 19.1 mmol/L (8-16); CALCIUM 9.8 mg/dL (8.5-10.1); CARBON DIOXIDE 27.9 mmol/L (21.0-32.0); CREATININE - SERUM 9.6 mg/dL (0.6-1.3)
[2016-12-20 06:24] VITALS: BP 61/33
--- NOTE | 2016-12-20 07:27 | NUR ---
AM ROUNDS, PT UP TO SIDE OF BED, DENIES ANY NEEDS AT THIS TIME, NO FAMILY AT BEDSIDE, CALL LIGHT IN REACH, NAD NOTED, WILL CONTINUE TO MONITOR.
--- NOTE | 2016-12-20 08:41 | NUR ---
ADMINISTERED MORNING MEDICATIONS, HELD CORDORON FOR LOW BP. PT STATES THAT HIS BP STAYS LOW ALL THE TIME. SOMETIMES IT EVEN RUNS IN THE 40S SYSTOLIC. PT DENIES ANY NEEDS AT THIS TIME. CALL LIGHT IN REACH, AT BEDSIDE, NAD NOTED, WILL CONTIINUE TO MONITOR.
[2016-12-20 08:48] VITALS: BP 69/41
[2016-12-20 12:16] LABS: HEPATITIS C ANTIBODY <0.1 (0.0-0.9)
[2016-12-20 12:30] VITALS: BP 119/98
--- NOTE | 2016-12-20 14:48 | NUR ---
DIALYSIS COORDINATOR: PATHWAYS: [facility] Hemo Department. Medical records forwarded to the unit for their records. NAVA CLEMENTE.
--- NOTE | 2016-12-20 15:41 | NUR ---
Patient Name: SARAVANAN SAM Admission Status: Urgent Accout number: [id number] Admission Date: 12-16-2016 : 1950 Admission Diagnosis: Attending: NARAYAN Current LOS: 4 Anticipated DC Date: 12-21-2016 Planned Disposition: Home Primary Insurance: MEDICARE A & B Discharge Planning Comments: CM NOTE: CM met with patient and (Nidia) [phone] to assess discharge planning/needs. Patient currently is on home hemo dialysis 5 nights a week in [place] where he lives. Nidia () does patients medication management. Patient states he plans to return home and his will drive him. His home has 15 steps with a rail. Patient needs wheelchair so he can go to granddaughter's wedding. New order received for that. [facility] will deliver in the morning, spoke with Marilin. Pt plans to be discharged home tomorrow. Pt and denies any other discharge planning/needs at this time. CM will continue to follow and assist as needed with discharge planning/needs PCP: [facility] in [place] : Nidia [phone] Public Transit Specialist: Shaina Brambila * Is the patient Alert and Oriented? Yes 0 * How many steps to enter\exit or inside your home? 15 0 * PCP RAI 0 * [facility] [place] 0 * Preadmission Environment Home with Family 0 * ADLs Partial Dependent 0 * Partial ADLs (Assistance needed) Medication Management 0 * Equipment Other 0 * Other Equipment HOME HEMO DIALYSIS -5 DAYS A WEEK 0 * List name and contact numbers for known caregivers / representatives who currently or will assist patient after discharge: NIDIA SAM () [phone] 0 * Community resources currently utilized None 0 * Additional services required to return to the preadmission environment? No 0 * Can the patient safely return to the preadmission environment? Yes 0 * Has this patient been hospitalized within the prior 30 days at any hospital? No 0 Grand Total: 0
[2016-12-20 16:05] VITALS: BP 70/44
--- NOTE | 2016-12-20 18:08 | CN ---
PATIENT NAME:SARAVANAN SAM MEDICAL RECORD: [id number] : 50 LOCATION:D.M2 D.2103 ADMIT DATE: 12/16/16 ACCOUNT: [id number] CONSULTING PHYSICIAN: FORREST GARCIA MD REFERRING PHYSICIAN: ALE ATWOOD MD DATE OF CONSULTATION: 12/17/2016 Cardiology Consultation DIAGNOSES: 1. Near syncope. 2. Coronary artery disease. 3. Status post coronary bypass graft surgery. 4. Status post recent PTCA stent RCA. 5. End-stage renal failure on dialysis. 6. Hypertension. 7. Paroxysmal atrial fibrillation. HISTORY OF PRESENT ILLNESS: Mr. Sam has been having episodes of near syncope, had 3 episodes yesterday. He articulates look on his face according to his and then he becomes almost unresponsive. His blood pressure runs very low. ____ has been on Florinef. His blood pressure still in 70-80 systolic range. His medications are ProAmatine and Florinef. He is on Plavix, aspirin and amiodarone. PHYSICAL EXAMINATION: GENERAL APPEARANCE: Well-nourished, well-developed, appears stated age. Level of distress, comfortable. PSYCHIATRIC: Mental status, alert, normal affect. Orientation, oriented to time, place and person. EYES: Lids and conjunctiva, noninjected. No discharge, no pallor. ENT: Lips, teeth, gums, normal dentition. Oropharynx, no cyanosis, no pallor. NECK: Carotid arteries, bilateral normal upstroke, no bruits, no thrills. JUGULAR VEINS: No jugular venous pressure or distention. CERVICAL LYMPH NODES: Nontender, nonenlarged. THYROID: Not enlarged. Nontender. No nodules. LUNGS: Respiratory effort, unlabored. CHEST: Normal curvature. No thoracic deformity. No chest wall tenderness. Percussion, resonant. Auscultation, clear. No wheezes, no rales, no rhonchi. CARDIOVASCULAR: Precordial exam, nondisplaced. No heaves or pericardial thrills. Rate and rhythm, regular. Heart sounds, normal S1, normal S2. No S3, no gallop, no rub. Systolic murmur, not heard. Diastolic murmur, not heard. EXTREMITIES: No cyanosis, no edema. Peripheral pulses, full and equal in all extremities, except as noted. No bruits appreciated. ABDOMEN: Soft, nondistended. Normal aorta. No bruit. Nontender. No masses. Liver, nontender, no hepatomegaly. Spleen, nontender, no splenomegaly. MUSCULOSKELETAL: No joint tenderness. No joint swelling. No erythema. NEUROLOGICAL: Normal gait, normal strength, normal tone. SKIN: Warm and dry. REVIEW OF SYSTEMS: The patient reports easy bruising but reports no swollen glands. The patient reports no fever, no night sweats, no significant weight gain, no significant weight loss. No significant exercise tolerance. The patient reports no dry eyes, no irritation, no vision change. Patient reports no difficulty hearing and no ear pain. Patient reports no frequent nose bleeds CONSULT REPORT [id number] FLACOSARAVANAN or nose and sinus problems. Patient reports on arm pain on exertion. No shortness of breath while lying down. No history of heart murmur. Patient reports no cough, no wheezing or coughing up blood. Patient reports no abdominal pain, no vomiting. Normal appetite. No diarrhea and not vomiting blood. No nausea and no constipation. Patient reports no incontinence. No difficulty urinating. No hematuria. No increased frequency. Patient reports no muscle aches. No weakness, no arthralgias, no back pain. No swelling of the extremities. Patient reports no abnormal mole, no jaundice, no rashes. Reports no loss of consciousness. No weakness and no numbness. No seizures, dizziness, or headaches. The patient reports no depression, no sleep disturbance, feeling safe in a relationship and no alcohol abuse. Patient reports on fatigue. Reports no runny nose or sinus pressure. No itching, no hives, and no frequent sneezing. OVERALL IMPRESSION: From a cardiac standpoint, he remains in sinus rhythm. At this time, it is difficult to say if he is having recurrent dysrhythmias. We will place him on telemetry. We will decrease the amiodarone, but only at 200 mg q. day. We will evaluate for further arrhythmias. He does not need repeat cardiac catheterization. He is having no anginal symptomatology and he only had one 90% stenosis of the RCA that was fixed. At this time, he can go off of Plavix as that was a bare metal stent and that intervention was done at 10/28/2016. Further care depends upon the findings of telemetry. TRANSINT:[id number] Voice Confirmation ID: [id number] DOCUMENT ID: [id number] FORREST GARCIA MD at 1808 CC: [id number] DICTATION DATE: 12/17/16954 PUBLIC SPEAKING PROFESSOR: 12/17/16 1740 ADM IN [place] [id number] [place] [address]
--- NOTE | 2016-12-20 18:08 | EC ---
PATIENT:SARAVANAN SAM DATE OF SERVICE: 12/16/16 SEX: M MEDICAL RECORD: [id number] DATE OF : 50 LOCATION:D.M2 D.210 AGE OF PATIENT: 66 ADMISSION DATE: 12/16/16 REFERRING PHYSICIAN: INTERPRETING PHYSICIAN: FORREST SWAN MD ECHOCARDIOGRAM REPORT ECHO CHARGES 4 ECHO COMPLETE CLINICAL DIAGNOSIS: CHF/HYPOTENSION ECHOCARDIOGRAPHIC MEASUREMENTS (adult normal given) AC root (d.<3.7cm) 3.3 LV Septum d (<1.2 cm> 1.7 Valve Excursion 0.7 LV Septum (systole) 2.4 Left Atria (s.<4.0cm> 4.6 LVPW d(<1.2cm) 1.7 RV (d.<2.3cm) 3.5 LVPW (sytole) 2.4 LV diastole(<5.6CM) 4.6 MV E-F(>70mm/sec) LV systole 2.0 LVOT Diameter 1.7 MV exc.(>10mm) Est.ejection fraction (50-75%) Pericardial Effusion N DOPPLER: LVIT A 301 E 260 LA RVSP 68.2 LVOT 109 AOP1/2T Asc. Ao 164 RVOT 66.0 RA PA 89.0 AV Gradient Peak 11.0 AV Mean 5.5 AV Area 1.6 MV Gradient Peak 38.0 MV Mean 18.2 MV Area 0.7 COMMENTS: Senior Payroll Administrator: Billy QUEZADAOE Swimming Pool Attendant:1 Dr. Swan TAPE# PACS DATE OF SERVICE: 12/18/2016 ECHOCARDIOGRAM FINDINGS: 1. Left ventricle chamber size is within normal limits. Left ventricular systolic function is normal. Overall ejection fraction estimated at 60%. 2. Left atrium is enlarged at 4.6 cm. Right atrium and right ventricular chamber sizes are moderately dilated. 3. Valvular structures: The aortic valve with a tissue prosthesis has normal ECHOCARDIOGRAM REPORT [id number] SARAVANAN SAM structure and function in this position. Of the remaining valves the mitral valve does show heavy calcification of mitral stenosis. Valve area calculates at 0.7 centimeter squared and there is a gradient of 38 mm across the valve. 4. Doppler interrogation reveals moderate mitral regurgitation, moderate to severe tricuspid regurgitation, no other valvular insufficiency or stenosis; however, pulmonary systolic pressure is estimated at 68 mmHg. 5. No evidence of pericardial effusion or left ____ thrombus. TRANSINT:[id number] Voice Confirmation ID: [id number] DOCUMENT ID: [id number] FORREST SWAN MD at 1808 CC: [id number] DICTATION DATE: 12/18/161714 SCOREKEEPER: 12/19/16 0201 ADM IN [place] [id number] [place] [address]
[2016-12-20 21:07] VITALS: BP 56/21
[2016-12-21 01:38] VITALS: BP 68/38
[2016-12-21 04:40] LABS: BASOPHILS 0.1 % (0-2); EOSINOPHILS 1.7 % (0-7); HEMOGLOBIN 13.7 g/dL (13.5-17.5); IMMATURE GRANULOCYTES 1.1 % (0-5); LYMPHOCYTES 16.3 % (15-50); MCH 29.9 pg (26.0-34.0); MCHC 30.4 g/dL (31.0-37.0); MCV 98.3 fL (80.0-100.0); MEAN PLATELET VOLUME 10.8 fL (7.4-10.4); MONOCYTES 8.1 % (2-11); NEUTROPHILS 72.7 % (40-80); PLATELET COUNT 229 10x3/uL (130-400); RBC 4.58 10x6/uL (4.20-6.10); RDW 21.4 % (11.5-14.5)
[2016-12-21 05:22] LABS: ANION GAP 23.3 mmol/L (8-16); CALCIUM 9.8 mg/dL (8.5-10.1); CARBON DIOXIDE 22.9 mmol/L (21.0-32.0); CREATININE - SERUM 11.8 mg/dL (0.6-1.3); POTASSIUM - SERUM 4.2 mmol/L (3.5-5.1)
[2016-12-21 05:32] VITALS: BP 60/26
--- NOTE | 2016-12-21 05:56 | NUR ---
NURSE ROUNDS 12/20/16 21:00 PT LYING IN BED, AWAKE, ALERT, ORIENTED, DENIED ANY NEEDS. CONTINUE TO MONITOR CLOSELY. BED LOW, CALL LIGHT IN REACH, SIDE RAILS X 2, HOB 20 DEGREES.
[2016-12-21 07:47] VITALS: BP 75/49
--- NOTE | 2016-12-21 08:03 | NUR ---
ADMINISTERED MORNING MEDICATIONS, PT IN BED, EATING BREAKFAST AT THIS TIME. DENIES ANY NEEDS, CALL LIGHT IN REACH, AT BEDSIDE, NAD NOTED, WILL CONTINUE TO MONITOR.
[2016-12-21] MEDS ORDERED: CIPRO250 MG PO (11:15)
--- NOTE | 2016-12-21 14:39 | NUR ---
PROVIDED VERBAL AND WRITTEN DICHARGE INSTRUCTIONS TO PT AND , BOTH VERBALIZED UNDERSTANDING REGARDING TEACHING. D/C RIGHT WRIST IV, TIP INTACT. [facility] HERE TO DELIVER WHEELCHAIR. PT DENIES ANY NEEDS AT THIS TIME. WILL LET US KNOW WHEN HE IS READY TO GO.
--- NOTE | 2016-12-21 15:01 | NUR ---
PT LEFT UNIT VIA WHEELCHAIR, ACCOMPANIED BY , NAD NOTED.
== END 2016-12-21 15:01 | disposition home or self-care (01) | DRG 314 ==
LOC: D.ICU 17:25 → D.M2 17:25 → D.ICU 12-17 13:49 → D.M2 12-19 19:32
PROVIDERS: ADMIT Internal Medicine Nephrology
PROC: 5A1D60Z (ICD-10-PCS; principal; 2016-12-16)
DX: I95.9 Hypotension, unspecified (principal); N18.6 End stage renal disease; I12.0 Hypertensive chronic kidney disease with stage 5 chronic kidney disease or end stage renal disease; Z99.2 Dependence on renal dialysis; I48.0 Paroxysmal atrial fibrillation; I05.0 Rheumatic mitral stenosis; Z79.01 Long term (current) use of anticoagulants; N45.3 Epididymo-orchitis; N30.80 Other cystitis without hematuria; I25.10 Atherosclerotic heart disease of native coronary artery without angina pectoris; Z95.5 Presence of coronary angioplasty implant and graft; Z95.1 Presence of aortocoronary bypass graft; E03.9 Hypothyroidism, unspecified; Z95.2 Presence of prosthetic heart valve

== ENCOUNTER 2017-01-07 01:12 | Emergency (ER) | payer MEDICARE ==
[2016-12-17 12:54] VITALS: BMI 30.4
[~2017-01-07 01:12] MED LIST changes: +AUGMENTIN 500-11 TA1 PO; +CIPRO250 MG PO; +MIDODRINE HCL5 MG PO
[2017-01-07 01:51] LABS: BASOPHILS 0.1 % (0-2); EOSINOPHILS 0.5 % (0-7); HEMATOCRIT 47.2 % (42.0-54.0); HEMOGLOBIN 14.3 g/dL (13.5-17.5); IMMATURE GRANULOCYTES 1.1 % (0-5); LYMPHOCYTES 7.4 % (15-50); MCH 28.9 pg (26.0-34.0); MCHC 30.3 g/dL (31.0-37.0); MCV 95.5 fL (80.0-100.0); MEAN PLATELET VOLUME 11.4 fL (7.4-10.4); MONOCYTES 7.5 % (2-11); NEUTROPHILS 83.4 % (40-80); PLATELET COUNT 190 10x3/uL (130-400); RBC 4.94 10x6/uL (4.20-6.10); RDW 18.8 % (11.5-14.5); WBC 10.3 10x3/uL (4.8-10.8)
[2017-01-07 02:01] LABS: ALBUMIN 3.2 g/dL (3.4-5.0); ALKALINE PHOSPHATASE 148 U/L (46-116); ALT (SGPT) 30 U/L (10-68); CALC OSMOLALITY 284 mosm/kg (275-300); CALCIUM 9.3 mg/dL (8.5-10.1); CARBON DIOXIDE 25.5 mmol/L (21.0-32.0); CHLORIDE - SERUM 96 mmol/L (98-107); CREATININE - SERUM 6.5 mg/dL (0.6-1.3); GLUCOSE 138 mg/dL (74-106); PROTEIN - SERUM 8.6 g/dL (6.4-8.2); SODIUM 137 mmol/L (136-145); UREA NITROGEN 39 mg/dL (7-18); eGFR NON AFRICAN AMERICAN 9 mL/min (90-120)
[2017-01-07 02:15] LABS: CKMB 1.3 U/L (0.0-3.6); CREATINE KINASE 47 UL (21-232); PRO BNP 21431 pg/mL (0-125)
[2017-01-07 02:17] LABS: TROPONIN-I 0.126 ng/mL (0.000-0.060)
--- NOTE | 2017-01-09 16:17 | NUR ---
Per CMS protocol, restraint report logged into data base.
== END 2017-01-07 07:08 ==
LOC: D.ER 01:12
PROVIDERS: Emergency Medicine
DX: R55 Syncope and collapse (principal); R57.0 Cardiogenic shock; I13.2 Hypertensive heart and chronic kidney disease with heart failure and with stage 5 chronic kidney disease, or end stage renal disease; E11.22 Type 2 diabetes mellitus with diabetic chronic kidney disease; N18.6 End stage renal disease; I50.9 Heart failure, unspecified; Z99.2 Dependence on renal dialysis; R09.2 Respiratory arrest; E87.6 Hypokalemia